=== PATIENT | female | born 1950 | race Caucasian/White ===

== ENCOUNTER 2016-03-03 10:44 | Emergency (ER) | payer MEDICARE, OTHER ==
[2016-03-03] MEDS ORDERED: OPTIRAY 350 100 ML VIAL HMH IV ONE (10:45)
[2016-03-03] MEDS ORDERED: SODIUM CHLORIDE 0.9% 1,000 ML ONE (12:28)
[2016-03-03] MEDS ORDERED: ONDANSETRON 4 MG VIAL ONE (12:28)
[2016-03-03] MEDS ORDERED: KETOROLAC 30 MG/ML VIAL ONE (13:52)
== END 2016-03-03 16:22 | disposition home or self-care (01) ==
LOC: ER 10:44
DX: R07.9 Chest pain, unspecified (principal); C34.90 Malignant neoplasm of unspecified part of unspecified bronchus or lung; I10 Essential (primary) hypertension
CPT/HCPCS: 36415; 71020; 71260; 80053; 81001; 82553; 84484; 85025; 87088; 87804; 93005; 96361; 96374; 96375; 99285; J1885; J2405; Q9967